=== PATIENT | female | born 1965 | race Caucasian/White ===

== ENCOUNTER 2017-06-12 09:46 | Emergency (ER) | payer BC, OTHER ==
[2017-06-12] MEDS ORDERED: Benzonatate CAP* 100 MG PO ONE (10:20)
[2017-06-12] MEDS ORDERED: guaiFENesin ER TAB 600 MG PO ONE (10:21)
--- NOTE | 2017-06-12 10:30 | ED ---
Respiratory - HPI Summary HPI Summary: Patient presents with 1.5 week cough and chest congestion. She denies fevers, sweats or chills. Pain in the chest with cough, otherwise negative. Denies fevers, sweats and chills. Denies abd pain, N/V/C/D. She is otherwise healthy and denies smoking or COPD history. Endorses sick contacts. Denies body aches. Denies nasal discharge and cough is wet, but non-productive. She takes no medications. She has been taking OTC cough medication without relief. - History of Current Complaint Chief Complaint: EDGeneral Stated Complaint: CHEST CONJESTION ,COUGH Time Seen by Provider: 06/12/17 10:05 Hx Obtained From: Patient Onset/Duration: Gradual Onset Timing: Constant Initial Severity: Moderate Current Severity: Moderate Pain Intensity: 0 Character: Cough (Productive) Sputum Amount: Scant Aggravating Factor(s): URI Alleviating Factor(s): Nothing Associated Signs and Symptoms: Chest Pain with Cough, Nasal Congestion - Risk Factors Status Asthmaticus Risk Factors: Negative Pulmonary Embolism Risk Factors: Negative Cardiac Risk Factors: Negative Pseudomonas Risk Factors: Negative - Allergy/Home Medications Allergies/Adverse Reactions: Allergies Allergy/AdvReac Type Severity Reaction Status Date / Time JOHAN SKIN Allergy LIPS SCALE Uncoded 12/12/12 07:14 PMH/Surg Hx/FS Hx/Imm Hx Previously Healthy: Yes Sensory History: Denies: Hx Contacts or Glasses, Hx Hearing Aid Opthamlomology History: Denies: Hx Contacts or Glasses - Surgical History Surgery Procedure, Year, and Place: 3 'S. ORAL SURGERY-TEENAGER Hx Anesthesia Reactions: No - Immunization History Hx Pertussis Vaccination: No Immunizations Up to Date: Unable to Obtain/Confirm Infectious Disease History: No Infectious Disease History: Denies: Traveled Outside the [place] in Last 30 Days - Social History Occupation: Employed Full-time Lives: With Family Alcohol Use: None Hx Substance Use: No Substance Use Type: Reports: None Hx Tobacco Use: No Smoking Status (MU): Never Smoked Tobacco Review of Systems Constitutional: Negative Negative: Fever, Chills, Fatigue, Skin Diaphoresis Eyes: Negative Positive: Nasal Discharge Cardiovascular: Negative Positive: Cough Gastrointestinal: Negative Positive: no symptoms reported, see HPI Musculoskeletal: Negative Neurological: Negative All Other Systems Reviewed And Are Negative: Yes Physical Exam Triage Information Reviewed: Yes Vital Signs On Initial Exam: Initial Vitals Temp Pulse Resp BP Pulse Ox 97.6 F 77 17 129/76 99 06/12/17 09:51 06/12/17 09:51 06/12/17 09:51 06/12/17 09:51 06/12/17 09:51 Vital Signs Reviewed: Yes Appearance: Positive: Well-Appearing, Well-Nourished Skin: Positive: Skin Color Reflects Adequate Perfusion Head/Face: Positive: Normal Head/Face Inspection Eyes: Positive: EOMI, SEMAJ, Conjunctiva Clear ENT: Positive: Nasal congestion, Nasal drainage Neck: Positive: Supple, No Lymphadenopathy Respiratory/Lung Sounds: Positive: Rhonchi Cardiovascular: Positive: RRR, Pulses are Symmetrical in both Upper and Lower Extremities Musculoskeletal: Positive: Strength/ROM Intact Neurological: Positive: Sensory/Motor Intact, Alert, Oriented to Person Place, Time Psychiatric: Positive: Normal, Affect/Mood Appropriate AVPU Assessment: Alert - [place] Coma Scale Coma Scale Total: 15 Diagnostics - Vital Signs Vital Signs Temp Pulse Resp BP Pulse Ox 06/12/17 09:51 97.6 F 77 17 129/76 99 - Laboratory Lab Statement: Any lab studies that have been ordered have been reviewed, and results considered in the medical decision making process. Disposition - Course Course Of Treatment: Patient presents to the ED with CC of cough x 1.5 weeks. Endorses chest pain with cough. OTC cough medication without relief. Chest xray negative. She is given prednisone, tessalon and mucinex. VS stable. She is OK with discharge. - Diagnoses Provider Diagnoses: Cough, Upper respiratory infection Discharge - Discharge Plan Condition: Stable Disposition: HOME Prescriptions: Benzonatate CAP* [Tessalon CAP*] 100 mg PO TID #21 cap guaiFENesin ER TAB [Mucinex*] 1,200 mg PO DAILY #10 tab.er predniSONE TAB* [Deltasone TAB*] 50 mg PO DAILY #5 tab MDD 1 Patient Education Materials: Upper Respiratory Infection (ED) Referrals: No Primary Care Phys,NOPCP [Primary Care Provider] - Additional Instructions: Tessalon cough medication up to three times daily Guiafenesin 1 tab daily in the morning Prednisone 1 tab daily in the MORNING (this is a stimulant and may keep you up otherwise) First dose take immediately after pharmacy picking technician Over the counter cough medication syrup may be used in addition to the tessalon. Saline rinses, salt water gargles, taking zicam and drinking emergen-c ( available over the counter). Extra pillow at bedtime. Hot showers. Increase fluid intake. Get plenty of rest. Any new or worsening symptoms (fever, difficulty breathing, worsening symptoms) please seek medical attention immediately. Follow up with PCP for re-check and evaluation.
--- NOTE | 2017-06-12 11:30 | RAD ---
Indication: Cough. 2 views of the chest demonstrate no mediastinal shift. Heart is of normal size and configuration. Lung bonilla are clear. IMPRESSION: No active cardiopulmonary disease is noted.
[2017-06-12 11:31] VITALS: BP 118/75
== END 2017-06-12 11:25 | disposition home or self-care (01) ==
LOC: ED 09:46
DX: R05 Cough (principal); J06.9 Acute upper respiratory infection, unspecified
CPT/HCPCS: 71020; 99282; A9270-GY